=== PATIENT | female | born 1990 | race Two or more races ===

== ENCOUNTER 2020-09-18 22:57 | Emergency (ER) | payer MEDICAID ==
[~2020-09-18] VITALS: Ht 152.4 cm; Wt 58.1 kg
[2020-09-18 23:36] LABS: Urine Bacteria FEW /hpf (None Seen); Urine Blood 1+ /uL (Negative); Urine Mucus FEW (None Seen); Urine Specific Gravity 1.017 (1.001-1.035); Urine WBC 1 /hpf (0 - 5)
[2020-09-18 23:42] LABS: Basophils # (auto) 0.1 10 ^3/uL (0-0.2); Basophils % (auto) 0.9 % (0.0-2.0); Eosinophils # (auto) 0.1 10 ^3/uL (0-0.8); Eosinophils % (auto) 0.8 % (0.0-7.0); Hematocrit 41.4 % (36.0-46.0); Hemoglobin 13.5 g/dL (12.2-16.2); Lymphocytes % (auto) 33.3 % (10.0-50.0); Mean Corpuscular Hemoglobin 28.6 pg (28.0-32.0); Mean Corpuscular Hgb Conc. 32.7 g/dL (32.0-36.0); Mean Corpuscular Volume 87.5 fL (80.0-100.0); Monocytes # (auto) 0.7 10 ^3/uL (0-1.3); Monocytes % (auto) 7.8 % (0.0-12.0); Neutrophils # (auto) 5.1 10 ^3/uL (1.6-8.6); Neutrophils % (auto) 57.2 % (37.0-80.0); Red Blood Cells 4.73 10^6/uL (4.0-5.20); Red Cell Distribution Width 14.4 % (11.8-14.3)
[2020-09-18 23:50] LABS: BUN/Creatinine Ratio 12.8; Calcium 9.3 mg/dL (8.5-10.1); Potassium 3.7 mmol/L (3.5-5.1)
[2020-09-19 07:58] VITALS: BP 97/59
== END 2020-09-19 08:46 | disposition home or self-care (01) ==
LOC: ER 23:02
DX: R10.9 Unspecified abdominal pain (principal); R11.2 Nausea with vomiting, unspecified; R42 Dizziness and giddiness; Z88.6 Allergy status to analgesic agent
CPT/HCPCS: 36415; 74176; 80048; 81001; 81025; 83690; 85025; 93005

== ENCOUNTER 2025-03-26 17:59 | Emergency (ER) | payer MEDICAID, OTHER ==
[~2025-03-26] VITALS: Ht 154.9 cm; Wt 66.0 kg
--- NOTE | 2025-03-26 19:07 | ED.PDOC ---
HPI Comments Ms. Marcus is a 34-year-old female with no prior medical history who presents today with chief complaint of chest pain. The patient states that 3 hours ago she was in her car when she had sudden onset of retrosternal chest pain described as pressure-like, radiating down her right arm, 9/10 intensity, associated with headache, nausea, shortness of breath, and palpitations. She denies diaphoresis, peripheral edema, orthopnea, abdominal pain, fever, vomiting, nasal congestion, nasal discharge, cough, sore throat, and loss of consciousness. The patient states she was previously hospitalized overnight at [facility] for similar complaint, however states he was told her blood pressure was low. She refers she is being evaluated by a spinner frame and her workup so far has been benign. Due to persistence of pain, she presents to the emergency department for evaluation. On initial evaluation, she is afebrile, slightly tachycardic, otherwise hemodynamically stable. ATTESTATION NOTE: DR. HILTON: I WAS THE SUPERVISING ATTENDING FOR THIS ED ENCOUNTER. PLEASE SEE THE RESIDENT'S NOTES. I WAS AVAILABLE FOR QUESTIONS AND CONSULTATIONS. I HAVE PERSONALLY SEEN AND EVALUATED THIS PATIENT. DIFFERENTIAL DIAGNOSIS: Ddx include but not limitied to gastritis, musculoskeletal pain, radiculopathy, atypical chest pain, dissection, aneurysm, ACS, unstable angina, hiatal hernia, GERD, anxiety, costochondritis, PE, pneumothroax, neoplasm, cardiac ischemia, drug abuse, anemia. MDM: MDM: patient presented with the above HPI.------workup was initiated. patient was found with the above mentioned diagnosis. the following medications were ordered: please refer to order lists of meds and tests obtained by myself Dr. Hilton. Patient ED course and VS have been stabilized. Patient has been reassessed in the ED and remained in a stable condition. Pertinent incidental findings were discussed with the patient and/or family. Patient/family voices understanding and is agreeable with plan. Patient has been observed in the ED adequate length of time to insure improvement/stability. Escalation of care considered: Consideration of escalation to observation or admission Patient's saw her spinner frame this morning who arrange for a nuclear stress test for her in the near future. Patient is currently symptoms free. Patient was DISCHARGED home in a stable condition. All the reports of any imaging studies that were ordered by myself were reviewed by myself. 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 LITIGATION SECRETARY History: No Pertinent LITIGATION SECRETARY History Family History Family History: Reviewed,noncontributory to illness Social History Smoker: Non-Smoker Alcohol: Denies ETOH Use Drugs: Denies Drug Use Lives In: Home Constitutional: denies: chills, diaphoresis, fatigue, fever, malaise, sweats, weakness EENTM: denies: blurred vision, double vision, ear ringing, nasal discharge, nose bleeding, nose congestion, nose pain Respiratory: reports: stridor; denies: cough, hemoptysis, orthopnea, shortness of breath Cardiovascular: reports: chest pain, lightheadedness, palpitations; denies: diaphoresis, Dyspnea on exertion, edema, irregular heart beat, left arm pain, syncope Gastrointestinal: denies: abdomen distended, abdominal pain, constipated, diarrhea, hematemesis, melena, nausea, vomiting Genitourinary: denies: burning, dysuria, flank pain, frequency, hematuria, incontinence, pain, urgency Neurological: reports: headache; denies: dizziness, fainting, numbness, paresthesia, pre-existing deficit, seizure, weakness Musculoskeletal: denies: back pain, joint pain, joint swelling, muscle pain, muscle stiffness, neck pain Integumetry: reports: others; denies: bruises, laceration, lesions, lumps, rash, wounds Physical Exam General Appearance: Normal HEENT: Normal ENT Inspection, PERRL/EOMI, Pharynx Normal Neck: Full Range of Motion, Non-Tender, Normal Inspection Respiratory: Chest Non-Tender, Lungs Clear, No Accessory Muscle Use, No Respiratory Distress, Normal Breath Sounds Cardiovascular: No Edema, No Murmur, Normal Peripheral Pulses, Regular Rate/Rhythm Breast Exam: Deferred Gastrointestinal: Non Tender, Normal Bowel Sounds, Soft Genitalia: Deferred Pelvic: Deferred Rectal: Deferred Extremities: Normal capillary refill, Normal inspection, Normal range of motion, Non-tender, No pedal edema Neurologic: Alert, Normal Affect, Normal Mood Cerebellar Function: NOT DONE Reflexes: NOT DONE Skin: Normal Color Peripheral Pulses: 4+ dorsalis pedis (R), 4+ dorsalis pedis (L) Lymphatic: Other (No cervical adenopathy) EKG EKG : Pulse Rate (adult): 96 [place]: Normal Cardiac Rhythm: NSR Block: None Hypertrophy: None ST: Normal Was a procedure done? Was a procedure done?: No CP Differential Dx Differential Diagnosis: A-fib, Angina, Anxiety / Panic Attack, Electrolyte Disorder, Heart Failure, Hyperthyroidism, Hyperventilation, Sinus Tachycardia Differential Diagnosis: HTN Essential, HTN Accelerated Differential Diagnosis: Chest Wall Pain, Costochondritis, Esophageal reflu x/spasm, Myocardial Infarction, Pericarditis X-Ray, Labs, Meds, VS Vital Signs Date Time Temp Pulse Resp B/P (MAP) Pulse Ox O2 Delivery O2 Flow Rate FiO2 03/26/25 23:02 98.3 74 16 106/72 (83) 98 98.3 03/26/25 20:50 98.5 80 16 115/72 (86) 100 98.5 03/26/25 19:13 80 03/26/25 19:07 96 03/26/25 18:06 96 03/26/25 18:00 97.8 101 18 131/85 100 97.8 Lab Test 03/26/25 20:50 03/26/25 19:08 03/26/25 18:20 Range/Units Urine Color Colorless Yellow Urine Clarity Clear Clear Urine pH 6.0 5.0-9.0 Urine Specific [place] 1.006 1.001-1.035 Urine Protein Negative Negative Urine Ketones Trace Negative Urine Blood 2+ H Negative /uL Urine Nitrite Negative Negative Urine Bilirubin Negative Negative Urine Urobilinogen Normal Negative mg/dL Urine Leukocyte Esterase Negative Negative /uL Urine RBC 1 0 - 4 /hpf Urine Microscopic WBC 1 0-5 /HPF Urine Squamous Epithelial Cells Few <5 /hpf Urine Bacteria Few H None Seen /hpf Urine Glucose Normal Normal mg/dL Urine Opiates Screen Neg NEGATIVE Urine Fentanyl Screen Neg NEGATIVE Urine Barbiturates Screen Neg NEGATIVE Urine Phencyclidine Screen Neg NEGATIVE Urine Amphetamines Screen Neg NEGATIVE Urine Benzodiazepines Screen Neg NEGATIVE Urine Cocaine Screen Neg NEGATIVE Urine Cannabinoids Screen Neg NEGATIVE Troponin I High Sensitivity < 3 L 3 L </=34 ng/L White Blood Count 8.9 4.4-10.8 10^3/uL Red Blood Count 4.49 4.0-5.20 10^6/uL Hemoglobin 13.4 12.2-16.2 g/dL Hematocrit 40.5 36.0-46.0 % Mean Corpuscular Volume 90.2 80.0-100.0 fL Mean Corpuscular Hemoglobin 30.0 28.0-32.0 pg Mean Corpuscular Hemoglobin Concent 33.2 32.0-36.0 g/dL Red Cell Distribution Width 13.2 11.8-14.3 % Platelet Count 414 140-450 10^3/uL Mean Platelet Volume 8.3 6.9-10.8 fL Neutrophils (%) (Auto) 62.2 37.0-80.0 % Lymphocytes (%) (Auto) 31.7 10.0-50.0 % Monocytes (%) (Auto) 4.9 0.0-12.0 % Eosinophils (%) (Auto) 0.4 0.0-7.0 % Basophils (%) (Auto) 0.8 0.0-2.0 % Neutrophils # (Auto) 5.5 1.6-8.6 10 ^3/uL Lymphocytes # (Auto) 2.8 0.4-5.4 10 ^3/uL Monocytes # (Auto) 0.4 0-1.3 10 ^3/uL Eosinophils # (Auto) 0 0-0.8 10 ^3/uL Basophils # (Auto) 0.1 0-0.2 10 ^3/uL Nucleated Red Blood Cells 0.1 % D-Dimer, Quantitative 0.34 0.0-0.49 mg/L FEU Sodium Level 139 136-145 mmol/L Potassium Level 3.6 3.5-5.1 mmol/L Chloride Level 103 98-107 mmol/L Carbon Dioxide Level 23 20-31 mmol/L Anion Gap 13 5-15 Blood Urea Nitrogen 8 L 9-23 mg/dL Creatinine 0.71 0.550-1.02 mg/dL Glomerular Filtration Rate Calc 116 >90 mL/min BUN/Creatinine Ratio 11.3 10.0-20.0 Serum Glucose 90 74-106 mg/dL Calcium Level 9.9 8.7-10.4 mg/dL Total Bilirubin 0.3 0.2-1.0 mg/dL Aspartate Amino Transferase (AST) 31 13-40 U/L Alanine Aminotransferase (ALT) 38 7-40 U/L Alkaline Phosphatase 119 H 46-116 U/L Total Protein 8.1 5.7-8.2 g/dL Albumin 4.8 3.2-4.8 g/dL Time of 1ST Reevaluation: 21:20 Reevaluation 1ST: N/A Patient Education/Counseling: Diagnosis, Treatment Family Education/Counseling: No Family Present Comments Patient presents today with chief complaint of chest pain On initial evaluation, the patient seems well, slightly tachycardic, other vitals are within normal range Physical examination is without positive findings CBC is within normal range, D-dimer is within normal range, troponins are negative, CMP EKG shows normal sinus rhythm Chest x-ray shows no evidence of acute cardiopulmonary process SEPSIS Sepsis Screen Date sepsis recognized/suspect: Mar 26, 2025 Time Sepsis recognized/suspect: 1800 Recent Procedure: No On Antibiotic Therapy: No Respiratory Rate >20: No Heart Rate >90: Yes Temp<36 C (96.8 F) or >38.3 C: No SBP <90 or MAP <65 mmHG: No New Acute Mental Status Change: No Is the patient on CPAP, BIPAP,: No Physician Orders Electrocardigram (03/26/25 18:13) Electrocardigram (03/26/25 19:13) Electrocardigram (03/26/25 21:13) Utility Bill Collector (03/26/25 ) Chest Portable (03/26/25 18:46) Vital Signs Date Time Temp Pulse Resp B/P (MAP) Pulse Ox O2 Delivery O2 Flow Rate FiO2 03/26/25 23:02 98.3 74 16 106/72 (83) 98 98.3 03/26/25 20:50 98.5 80 16 115/72 (86) 100 98.5 03/26/25 19:13 80 03/26/25 19:07 96 03/26/25 18:06 96 03/26/25 18:00 97.8 101 18 131/85 100 97.8 Laboratory Tests Test 03/26/25 18:20 White Blood Count 8.9 10^3/uL (4.4-10.8) Departure 1 Departure Time of Disposition: 21:19 Impression: Primary Impression: Chest pain Disposition: 01 HOME / SELF CARE / HOMELESS Condition: Stable Additional Instructions: Additional instructions: Please read all instructions provided in this packet carefully. You MUST follow-up with your primary care/family doctor in 1 to 2 days. If you are unable to see your primary care/family doctor, please return to our emergency room for re-assessment and re-evaluation in 1 to 2 days. Return to the emergency room here in our facility or to the nearest ER [facility] if your symptoms change or worsen. CONSULTATIONS: you MUST Follow-up for consultation as soon as possible with: -cardiology in 1-2 days. Please call for appointment. You MUST call the consultants office yourself to make an appointment. You may need to arrange that through your insurance and/or your primary/family doctor. If you are unable to see the assessment consultant in 1 to 2 days, you must return to our emergency room (or any other ER of your choice) for re-assessment and re- evaluation. Adequate fluid hydration. Although you have been discharged from the Emergency Department, this does not mean that you have a "clean bill of health". No definitive diagnosis for your symptoms has been made today. It is possible that you are in the process of developing a serious illness. This is why you must return to the ED without fail if any new or worsening symptoms develop. Discharged With: Self Critical Care Note Critical Care Time?: No Stability Stability form required: RAPHAEL Bhakta RESIDENT Mar 26, 2025 19:07 JOSEPHINE HILTON DO Mar 26, 2025 21:20
--- NOTE | 2025-03-26 19:15 | DVH ---
CHEST RADIOGRAPH REASON FOR EXAM: Chest pain COMPARISON: XR CHEST 1 VIEW on DOS: 08/06/23, XR CHEST 1 VIEW on DOS: 03/11/23 TECHNIQUE: One view of the chest is provided FINDINGS: The cardiomediastinal silhouette is within normal limits for technique. There is no focal airspace disease. There is no significant pleural effusion. No acute bony abnormality is identified. IMPRESSION: No radiographic evidence of acute cardiopulmonary process.
[2025-03-26 19:21] LABS: Hematocrit 40.5 % (36.0-46.0); Hemoglobin 13.4 g/dL (12.2-16.2); Mean Corpuscular Hemoglobin 30.0 pg (28.0-32.0); Mean Corpuscular Volume 90.2 fL (80.0-100.0); Nucleated Red Blood Cells % 0.1 %
[2025-03-26 19:47] LABS: Alanine Aminotransferase 38 U/L (7-40); Albumin 4.8 g/dL (3.2-4.8); Anion Gap 13 (5-15); BUN/Creatinine Ratio 11.3 (10.0-20.0); Calcium 9.9 mg/dL (8.7-10.4); Carbon Dioxide 23 mmol/L (20-31); Chloride 103 mmol/L (98-107); Glucose 90 mg/dL (74-106); Potassium 3.6 mmol/L (3.5-5.1); Sodium 139 mmol/L (136-145); Total Protein 8.1 g/dL (5.7-8.2)
[2025-03-26 19:48] LABS: Bilirubin, Total 0.3 mg/dL (0.2-1.0)
[2025-03-26 19:54] LABS: Alkaline Phosphatase 119 U/L (46-116); Blood Urea Nitrogen 8 mg/dL (9-23)
[2025-03-26 22:10] LABS: Urine Protein, UAD Negative (Negative)
[2025-03-26 22:16] LABS: Barbiturate Scree,Urine Neg (NEGATIVE); Cannabinoid Screen, Urine Neg (NEGATIVE); Cocaine Screen, Urine Neg (NEGATIVE); Opiate Scree,Urine Neg (NEGATIVE); Phencyclidine Screen, Urine Neg (NEGATIVE)
[2025-03-26 22:23] LABS: Amphetamine Screen, Urine Neg (NEGATIVE); Benzodiazephine Screen, Urine Neg (NEGATIVE)
[2025-03-26 23:22] VITALS: BP 111/71; PULSE 76; RESP 17; TEMP 99; O2SAT 99
--- NOTE | 2025-03-27 04:41 | ECG ---
[facility] Test Date: 2025-03-26 Test Time: 19:13:55 Pat Name: SANDEE WHITE Department: ED Room: Gender: F Co Founder And Ceo: : 1990 Requested By: JOSEPHINE BOURNE Order Number: [id number] Reading MD: Juan Yuan Measurements Intervals [place] Rate: 80 P: 50 CO: 159 QRS: 57 QRSD: 87 T: 28 QT: 378 QTc: 436 Interpretive Statements Sinus rhythm Low voltage, precordial leads Electronically Signed On 03-30-2025 17:48:48 PST by Juan Yuan Please click the below link to view image of tracing.
--- NOTE | 2025-03-27 19:19 | ECG ---
[facility] Test Date: 2025-03-26 Test Time: 18:06:21 Pat Name: SANDEE WHITE Department: [facility] ED Patient ID: [facility]-[id number] Room: Gender: F Peg Driver: kiko : 1990 Requested By: JOSEPHINE BOURNE Order Number: [id number] Reading MD: Juan Yuan Measurements Intervals [place] Rate: 96 P: 61 IN: 158 QRS: 49 QRSD: 88 T: 20 QT: 360 QTc: 455 Interpretive Statements Sinus rhythm Low voltage, precordial leads Baseline wander in lead(s) I Electronically Signed On 03-30-2025 17:44:53 PST by Juan Yuan Please click the below link to view image of tracing.
== END 2025-03-26 23:22 | disposition home or self-care (01) ==
LOC: ER 17:59
DX: R07.89 Other chest pain (principal); Z88.2 Allergy status to sulfonamides; Z88.1 Allergy status to other antibiotic agents; Z88.6 Allergy status to analgesic agent
CPT/HCPCS: 36415; 71045; 80053; 80307; 81001; 84484; 85025; 85379; 93005